=== PATIENT | female | born 1995 | race Two or more races ===

== ENCOUNTER 2018-01-06 07:24 | Outpatient (CLI) | payer OTHER | END 2018-01-06 07:29 | disposition home or self-care (01) | LOC: LAB 07:24 | DX: E72.11 Homocystinuria (principal); D68.62 Lupus anticoagulant syndrome; D68.8 Other specified coagulation defects ==

== ENCOUNTER 2018-01-09 07:49 | Outpatient (CLI) | payer OTHER | END 2018-01-09 09:15 | disposition home or self-care (01) | LOC: LAB 07:49 | DX: E72.11 Homocystinuria (principal); D68.62 Lupus anticoagulant syndrome; D68.8 Other specified coagulation defects ==

== ENCOUNTER 2018-05-07 03:21 | Emergency (ER) | payer OTHER ==
[~2018-05-07] VITALS: Ht 162.6 cm; Wt 48.5 kg
== END 2018-05-07 10:25 | disposition home or self-care (01) ==
LOC: ER 03:21
DX: R42 Dizziness and giddiness (principal)

== ENCOUNTER → 2018-11-18 | Emergency (ER) | payer OTHER ==
[~2018-11-18] VITALS: Ht 162.6 cm; Wt 49.4 kg
== END | disposition left against medical advice (07) ==
LOC: ER 04:09
DX: Z53.20 Procedure and treatment not carried out because of patient's decision for unspecified reasons (principal)